=== PATIENT | female | born 1935 | race Caucasian/White ===

== ENCOUNTER → 2016-05-10 | Outpatient (CLI) | payer MEDICARE ==
[~2016-05-10] MED LIST: ASPI-COR81 M1 PO; ASPIRIN LITE C325 MG PO; B12100 MC1 PO; CALCIUM 500 +1 EAC1 PO; CALCIUM 600MG+D1 TAB PO; COREG12.5 MG PO; DIOVAN160 MG PO; FORTE-PLUS-241 CAP PO; GLIPIZIDE2.5 MG PO; ISOSORBIDE MONO60 MG PO; JANUVIA100 MG PO; LASIX20 MG PO; LIPITOR80 MG PO; Lovenox40 MG/0.4 SC; METFORMIN500 MG PO; MICRO-K EXTENCA8 MEQ PO; SYNTHROID0.175 MG PO
[2016-05-10 07:40] LABS: ALBUMIN 3.7 gm/dl (3.1-4.5); ALKALINE PHOSPHATASE 124 U/L (45-117); BILIRUBIN, TOTAL 0.6 mg/dl (0.2-1.0); BUN 37 mg/dl (7-24); CARBON DIOXIDE 27 mmol/L (21-32); CHLORIDE 106 mmol/L (98-107); CHOLESTEROL 120 mg/dL (<200); EST GLOM FILT AFRICAN AMERICAN > 60 ml/min; GLUCOSE 124 mg/dL (65-99); HDL CHOLESTEROL 46 mg/dl (40-60); LDL CHOLESTEROL 55 mg/dL (9-159); POTASSIUM 3.9 mmol/L (3.5-5.1); SGOT/AST 25 IU/L (3-35); SGPT/ALT 35 U/L (12-78); SODIUM 144 mmol/L (136-145); TOTAL PROTEIN 7.7 gm/dL (6.4-8.2); TRIGLYCERIDES 96 mg/dl (<150); VLDL CHOLESTEROL 19 mg/dL (6-40)
[2016-05-10 07:42] LABS: HEMOGLOBIN 13.3 g/dl (12.0-16.0); MEAN CORPUSCULAR HGB 32.1 pg (27.0-31.0); MEAN CORPUSCULAR HGB CONC 32.4 g/dl (33.0-37.0); MEAN PLATELET VOLUME 10.4 fl (9.6-12.3); RED BLOOD COUNT 4.14 10*6/uL (4.10-5.10); RED CELL DISTRI WIDTH 12.8 % (0-14.5)
[2016-05-10 07:46] LABS: THYROID STIM HORMONE (HS) 0.131 uIU/ml (0.358-4.75)
== END | disposition home or self-care (01) ==
LOC: LAB 02:55
PROVIDERS: Nurse Practitioner Adult Health
DX: E11.9 Type 2 diabetes mellitus without complications (principal); I10 Essential (primary) hypertension; I25.810 Atherosclerosis of coronary artery bypass graft(s) without angina pectoris; E05.90 Thyrotoxicosis, unspecified without thyrotoxic crisis or storm; E87.5 Hyperkalemia; E55.9 Vitamin D deficiency, unspecified

== ENCOUNTER → 2016-06-09 | Outpatient (CLI) | payer MEDICARE ==
[2016-06-09 07:54] LABS: ALBUMIN 3.6 gm/dl (3.1-4.5); BILIRUBIN, DIRECT 0.1 mg/dL (0.0-0.2); BILIRUBIN, TOTAL 0.4 mg/dl (0.2-1.0); TOTAL PROTEIN 7.7 gm/dL (6.4-8.2)
== END | disposition home or self-care (01) ==
LOC: LAB 01:15
PROVIDERS: Nurse Practitioner Adult Health
DX: I47.2 Ventricular tachycardia (principal)

== ENCOUNTER → 2016-08-01 | Outpatient (CLI) | payer MEDICARE ==
[2016-08-01 07:27] LABS: HEMATOCRIT 35.7 % (37.0-47.0); HEMOGLOBIN 11.6 g/dl (12.0-16.0); MEAN CELL VOLUME 102.3 fl (81.0-99.0); MEAN CORPUSCULAR HGB 33.2 pg (27.0-31.0); MEAN CORPUSCULAR HGB CONC 32.5 g/dl (33.0-37.0); MEAN PLATELET VOLUME 10.4 fl (9.6-12.3); RED BLOOD COUNT 3.49 10*6/uL (4.10-5.10); RED CELL DISTRI WIDTH 14.2 % (0-14.5); WHITE BLOOD COUNT 24.9 10*3/uL (4.8-10.8)
[2016-08-01 07:52] LABS: ALBUMIN 3.3 gm/dl (3.1-4.5); BILIRUBIN, TOTAL 1.1 mg/dl (0.2-1.0); POTASSIUM 4.8 mmol/L (3.5-5.1); TOTAL PROTEIN 7.4 gm/dL (6.4-8.2)
[2016-08-01 07:59] LABS: THYROID STIM HORMONE (HS) 1.14 uIU/ml (0.358-4.75)
[2016-08-01 08:12] LABS: VITAMIN D, 25-HYDROXY 36.7 ng/mL (30-100)
== END | disposition home or self-care (01) ==
LOC: LAB 01:52
PROVIDERS: Internal Medicine
DX: E78.2 Mixed hyperlipidemia (principal); E11.9 Type 2 diabetes mellitus without complications; E05.90 Thyrotoxicosis, unspecified without thyrotoxic crisis or storm; E55.9 Vitamin D deficiency, unspecified; I25.720 Atherosclerosis of autologous artery coronary artery bypass graft(s) with unstable angina pectoris

== ENCOUNTER → 2016-08-02 | Outpatient (CLI) | payer MEDICARE ==
[2016-08-02 14:26] LABS: BASO % 0.2 % (0.0-1.0); EOS # 0.1 10*3/uL (0.0-0.4); EOS % 0.4 % (1.0-4.0); HEMATOCRIT 36.5 % (37.0-47.0); HEMOGLOBIN 11.7 g/dl (12.0-16.0); IG # 0.1 10*3/uL (0.0-0.1); LYMPH # 2.3 10*3/uL (1.3-4.4); LYMPH % 16.5 % (27.0-41.0); MEAN CELL VOLUME 102.5 fl (81.0-99.0); MEAN CORPUSCULAR HGB 32.9 pg (27.0-31.0); MEAN CORPUSCULAR HGB CONC 32.1 g/dl (33.0-37.0); MEAN PLATELET VOLUME 10.6 fl (9.6-12.3); MONO # 1.4 10*3/uL (0.1-1.0); MONO % 10.3 % (3.0-9.0); NEUT # 9.9 10*3/uL (2.3-7.9); NEUT % 71.9 % (47.0-73.0); PLATELET COUNT AUTOMATED 181 10*3/uL (130-400); RED BLOOD COUNT 3.56 10*6/uL (4.10-5.10); RED CELL DISTRI WIDTH 14.2 % (0-14.5); WHITE BLOOD COUNT 13.8 10*3/uL (4.8-10.8)
== END | disposition home or self-care (01) ==
LOC: LAB 13:54 → US 14:30
PROVIDERS: Internal Medicine
DX: N20.0 Calculus of kidney (principal); R79.89 Other specified abnormal findings of blood chemistry; D72.828 Other elevated white blood cell count; Z90.49 Acquired absence of other specified parts of digestive tract; E05.90 Thyrotoxicosis, unspecified without thyrotoxic crisis or storm; E11.9 Type 2 diabetes mellitus without complications; E78.2 Mixed hyperlipidemia; I25.720 Atherosclerosis of autologous artery coronary artery bypass graft(s) with unstable angina pectoris; E55.9 Vitamin D deficiency, unspecified

== ENCOUNTER → 2016-08-11 | Outpatient (CLI) | payer MEDICARE | END | disposition home or self-care (01) | LOC: US 08-09 16:00 | DX: N13.30 Unspecified hydronephrosis (principal); D72.828 Other elevated white blood cell count; N32.89 Other specified disorders of bladder ==

== ENCOUNTER 2016-11-30 08:11 | Emergency (ER) | payer MEDICARE ==
[~2016-11-30] VITALS: Wt 61.2 kg
[2016-11-30 08:54] LABS: BILIRUBIN NEGATIVE (NEGATIVE); BLOOD NEGATIVE (NEGATIVE); CLARITY CLEAR (CLEAR); COLOR YELLOW (YELLOW); GLUCOSE NEGATIVE (NEGATIVE); KETONE NEGATIVE (NEGATIVE); LEUKO ESTERASE NEGATIVE (NEGATIVE); NITRITE NEGATIVE (NEGATIVE); PH 5.5 (5.0-9.0); SPECIFIC GRAVITY <= 1.005 (1.005-1.030); UROBILINOGEN 0.2 E.U./dl (0.2-1.0)
[2016-11-30 09:17] LABS: BACTERIA TRACE; CALCIUM OXALATE CRYSTALS 1+
[2016-11-30 09:39] LABS: BASO # 0.1 10*3/uL (0.0-0.1); BASO % 0.5 % (0.0-1.0); EOS # 0.2 10*3/uL (0.0-0.4); EOS % 1.9 % (1.0-4.0); HEMATOCRIT 37.8 % (37.0-47.0); HEMOGLOBIN 12.4 g/dl (12.0-16.0); LYMPH # 2.3 10*3/uL (1.3-4.4); LYMPH % 22.1 % (27.0-41.0); MEAN CELL VOLUME 101.3 fl (81.0-99.0); MEAN CORPUSCULAR HGB 33.2 pg (27.0-31.0); MEAN CORPUSCULAR HGB CONC 32.8 g/dl (33.0-37.0); MEAN PLATELET VOLUME 10.2 fl (9.6-12.3); MONO # 1.2 10*3/uL (0.1-1.0); MONO % 11.3 % (3.0-9.0); NEUT # 6.7 10*3/uL (2.3-7.9); NEUT % 63.7 % (47.0-73.0); PLATELET COUNT AUTOMATED 177 10*3/uL (130-400); RED BLOOD COUNT 3.73 10*6/uL (4.10-5.10); RED CELL DISTRI WIDTH 12.6 % (0-14.5); WHITE BLOOD COUNT 10.5 10*3/uL (4.8-10.8)
[2016-11-30 09:51] LABS: BUN 26 mg/dl (7-24); CHLORIDE 105 mmol/L (98-107); CREATININE 1.01 mg/dL (0.55-1.02); POTASSIUM 5.2 mmol/L (3.5-5.1); SODIUM 140 mmol/L (136-145)
[2016-11-30] MEDS ORDERED: Fioricet 325 MG1 TAB PO ×2 (10:57→11:03)
== END 2016-11-30 11:11 | disposition home or self-care (01) ==
LOC: ED 08:11
PROVIDERS: Emergency Medicine
DX: S22.080A Wedge compression fracture of T11-T12 vertebra, initial encounter for closed fracture (principal); M48.52XA Collapsed vertebra, not elsewhere classified, cervical region, initial encounter for fracture; Z79.899 Other long term (current) drug therapy; Z79.82 Long term (current) use of aspirin; X58.XXXA Exposure to other specified factors, initial encounter; Y93.9 Activity, unspecified; Y92.9 Unspecified place or not applicable; Y99.9 Unspecified external cause status

== ENCOUNTER → 2016-12-07 | Outpatient (CLI) | payer MEDICARE ==
[~2016-12-07] MED LIST changes: +Fioricet 325 MG1 TAB PO
== END | disposition home or self-care (01) ==
LOC: CT 07:15 → MRI 12-08 08:00 → CT 12-11 08:00 → MRI 12-11 08:00 → CT 12-11 09:00
DX: M51.36 Other intervertebral disc degeneration, lumbar region (principal); M43.17 Spondylolisthesis, lumbosacral region; M12.88 Other specific arthropathies, not elsewhere classified, other specified site

== ENCOUNTER → 2016-12-20 | Outpatient (CLI) | payer MEDICARE | END | disposition home or self-care (01) | LOC: LAB 09:53 | DX: I50.22 Chronic systolic (congestive) heart failure (principal); E11.9 Type 2 diabetes mellitus without complications ==

== ENCOUNTER 2020-02-12 23:34 | Inpatient (IN) | payer MEDICARE ==
[~2020-02-12] VITALS: Ht 162.5 cm; Wt 51.8 kg
[~2020-02-12 23:34] MED LIST changes: +ASPIRIN CHEWABL81 MG PO; -ASPIRIN LITE C325 MG PO; +GLIPIZIDE5 MG PO; +HYDROXYZINE PAM25 M1 PO; +IRON325 M1 PO; +LEVAQUIN750 M1 PO; +MAGNESIUM400 M1 PO; +METOPROLOL SUC200 M1 PO; +MEXILETINE HCL200 MG PO; +MULTIVITAMINS1 EAC5 PO; +PRESERVISION L1 EACH PO; +SYNTHROID,LEV125 MCG PO; -SYNTHROID0.175 MG PO; +VITAMIN B COMP1 EAC1 PO
[2020-02-12 23:35] VITALS: BP 138/64
[2020-02-12 23:53] LABS: BASO # 0.1 10*3/uL (0.0-0.1); BASO % 0.5 % (0.0-1.0); EOS # 0.1 10*3/uL (0.0-0.4); EOS % 0.6 % (1.0-4.0); LYMPH # 1.2 10*3/uL (1.3-4.4); MEAN CELL VOLUME 103.5 fl (81.0-99.0); MEAN CORPUSCULAR HGB 32.2 pg (27.0-31.0); MEAN CORPUSCULAR HGB CONC 31.1 g/dl (33.0-37.0); MEAN PLATELET VOLUME 9.8 fl (9.6-12.3); MONO # 1.1 10*3/uL (0.1-1.0); MONO % 8.3 % (3.0-9.0); NEUT # 10.8 10*3/uL (2.3-7.9); NEUT % 80.9 % (47.0-73.0); PLATELET COUNT AUTOMATED 177 10*3/uL (130-400); RED BLOOD COUNT 3.67 10*6/uL (4.10-5.10); RED CELL DISTRI WIDTH 13.3 % (0-14.5); WHITE BLOOD COUNT 13.3 10*3/uL (4.8-10.8)
[2020-02-13] VITALS (7 sets, daily range): BP systolic 93–125; BP diastolic 52–69
[2020-02-13 00:09] LABS: CREATININE 1.19 mg/dL (0.55-1.02); POTASSIUM 4.4 mmol/L (3.5-5.1); TOTAL PROTEIN 6.7 gm/dL (6.4-8.2)
--- NOTE | 2020-02-13 00:14 | NUR ---
PT BACK FROM CT. DENIES NEEDS AT THIS TIME.
--- NOTE | 2020-02-13 01:23 | NUR ---
WOUND ASSESSMENT COMPLETED. NO WOUNDS NOTED. MULTIPLE ECCHYMOTIC AREAS NOTED ON ARMS. PT ALSO DENIES ANY WOUNDS.
--- NOTE | 2020-02-13 01:30 | NUR ---
Time: 129 A 84 year old FEMALE admitted to 5E under services of ANG PERDOMO DO. Pt. arrived via CART from ER. Chief complaint: FALL WITH FRACTURE. JAGUAR STONE
[2020-02-13] MEDS ORDERED: FUROSEMIDE40 MG PO (01:44)
[2020-02-13] MEDS ORDERED: VITAMIN D325 MCG PO (01:45)
[2020-02-13] MEDS ORDERED: DOK100 M1 PO (01:46)
--- NOTE | 2020-02-13 01:48 | NUR ---
MED REC UPDATED VIA LIST FROM HOME. NOTIFIED.
--- NOTE | 2020-02-13 04:46 | NUR ---
CALLED IN, UPDATED ON STATUS.
--- NOTE | 2020-02-13 05:52 | NUR ---
MORPHINE GIVEN FOR COMPLAINTS OF PAIN TO LEFT SHOULDER. SHOULDER NOTED TO BE MORE SWOLLEN WITH LARGE BRUISE. PAIN RATED 7/10. WILL MONITOR. CALL LIGHT IN REACH. ICE PACK ALSO APPLIED AT THIS TIME.
--- NOTE | 2020-02-13 06:50 | NUR ---
PER PT, MORPHINE AND ICE PACK EFFECTIVE FOR PAIN. CALL LIGHT IN REACH. BED ALARM ON.
[2020-02-13 07:09] LABS: HEMATOCRIT 35.2 % (37.0-47.0); MEAN CELL VOLUME 103.8 fl (81.0-99.0); MEAN CORPUSCULAR HGB 32.2 pg (27.0-31.0); MEAN PLATELET VOLUME 9.8 fl (9.6-12.3); PLATELET COUNT AUTOMATED 172 10*3/uL (130-400); RED BLOOD COUNT 3.39 10*6/uL (4.10-5.10); RED CELL DISTRI WIDTH 13.6 % (0-14.5); WHITE BLOOD COUNT 12.7 10*3/uL (4.8-10.8)
[2020-02-13 07:31] LABS: ACT PARTIAL THROMBO TIME 24.1 SECONDS (20.0-32.1)
[2020-02-13 07:33] LABS: ALBUMIN 2.9 gm/dl (3.1-4.5); CREATININE 1.2 mg/dL (0.55-1.02); THYROID STIM HORMONE (HS) 1.54 uIU/ml (0.358-4.75); TOTAL PROTEIN 6.5 gm/dL (6.4-8.2)
--- NOTE | 2020-02-13 07:35 | NUR ---
CONSULT CALLED TO . MESSAGE LEFT. AWAITING CALL BACK.
--- NOTE | 2020-02-13 07:43 | NUR ---
DR. PAUL NOTIFIED OF CONSULT, WILL SEE THE PATIENT TOMORROW.
--- NOTE | 2020-02-13 08:09 | NUR ---
MEDICATED WITH PRN PO NORCO FOR LEFT SHOULDER/ARM PAIN.
--- NOTE | 2020-02-13 08:23 | NUR ---
HELD AM [facility] FOR BP 102/52.
[2020-02-13 08:31] LABS: VITAMIN D, 25-HYDROXY 58.7 ng/mL (30-100)
[2020-02-13 08:56] LABS: PLATELET SUFFICIENCY NORMAL (NORMAL); TOTAL CELLS COUNTED 100 #CELLS
--- NOTE | 2020-02-13 12:19 | NUR ---
ATTEMPTED INSENTIVE SPIROMETRY. PT DOES NOT UNDERSTAND HOW TO USE IT. RT TRIED TO EXPLAIN AND PT DOES NOT GET CONCEPT OF THE PROCEDURE. WILL ATTEMPT AGAIN.
--- NOTE | 2020-02-13 13:42 | NUR ---
MEDICATED WITH PRN PO NORCO FOR LEFT SHOULDER/ARM PAIN.
--- NOTE | 2020-02-13 14:26 | NUR ---
PRN PO NORCO EFFECTIVE, PER PATIENT.
--- NOTE | 2020-02-13 18:01 | NUR ---
MEDICATED WITH PRN PO NORCO FOR CONTROL OF LEFT SHOULDER/ARM PAIN.
--- NOTE | 2020-02-13 18:11 | NUR ---
PATIENT WAS ORDERED PACEMAKER INTERROGATION; PATIENT HAS [employer]ATOR WITH A [employer]ANT[employer] LEAD IMPLANTED. [employer] PHONED TO INQUIRE ABOUT AN INTERROGATION. PER [employer] REP, UNLESS PATIENT IS BELIEVED TO HAVE A SPECIFIC PROBLEM WITH THE DEVICE OR AN EMERGENCY, HAVING REPS COME TO INPATIENT FLOORS DURING COVID PANDEMIC IS DISCOURAGED, AND THE COMPANY REQUIRES THE INTERROGATION ORDER TO BE PLACED BY A DIRECTOR SOFTWARE. PHONED DR. LORENZO WITH THIS INFORMATION, WHO SPOKE WITH DR. QUICK ALSO. OBTAINED ORDER TO CANCEL THE INTERROGATION AT THIS TIME. [employer] REP NOTIFIED OF THE CANCELLATION.
--- NOTE | 2020-02-13 23:22 | NUR ---
PT HAS S/S OF PAIN TO LEFT SHOULDER. NORCO GIVEN. WILL MONITOR FOR EFFECTIVENESS. CALL LIGHT IN REACH.
--- NOTE | 2020-02-13 23:22 | NUR ---
NORCO APPEARS EFFECTIVE. PT RESTING IN BED AT THIS TIME.
[2020-02-14] VITALS: BP 103/58
--- NOTE | 2020-02-14 06:45 | NUR ---
PT SLEEPING. RESPIRATIONS UNLABORED. NO S/S OF DISTRESS NOTED. SAFETY MEASURES IN PLACE. CALL LIGHT IN REACH.
[2020-02-14 08:00] VITALS: BP 124/75
--- NOTE | 2020-02-14 11:13 | NUR ---
[employer] Irrigator in to talk to patient. Patient Lives at home with her There are No Steps Physician: Dr. Sesay Pharmacy: [facility] Home health services: [facility] Patient's level of ADLs: Needs Assist Patient has working utilities: yes all are working DME: walker Follow-up physician's appointment after d/c: Per Hospitalist Nurse Director Does patient want to access PORTAL?: No Discharge plan discussed with Pt. due to Pt. being Confused. Pt. will return home per . Receptive to Home Health. Receives Services with [facility]. Pt. States that their Son David Tierney is in Charge of Everything Else. Refused SNF due to Covid Risk. HENRI JOHNSON LPN
[2020-02-14 12:00] VITALS: BP 108/66
--- NOTE | 2020-02-14 15:14 | NUR ---
NORCO GIVEN FOR C/O LT ARM PAIN. UNABLE TO RATE AT PRESNT. WILL MONITOR.
[2020-02-14 16:00] VITALS: BP 100/54
--- NOTE | 2020-02-14 16:15 | NUR ---
NORCO APPEARS EFFECTIVE. PT RESTING IN BED. NO C/O VOICED.
--- NOTE | 2020-02-14 17:00 | NUR ---
PHYSICAL THERAPY PT EVAL COMPLETED TODAY ON LEVEL 5; FULLE EVALUATION TO FOLLOW. RECOMMEND PT WHILE HERE TO ADDRESS DECREASED STRENGTH, ROM , BALANCE AND THUS DECREASED FUNCTIONAL STATUS. PT EVAL IS MODERATE COMPLEXITY: 85508 D/C RECOMMENDATIONS ON EVAL ARE FOR SHORT TERM SNF HOWEVER PER CHART REVIEW FAMILY STATES D/C PLAN IS HOME WITH HOME HEALTH AND CAREGIVERS DUE TO FEAR OF COVID 19. THANK YOU FOR EVALUATION FRED GALLEGOS PT
[2020-02-14 20:00] VITALS: BP 100/55
[2020-02-14 23:54] VITALS: BP 121/64
[2020-02-15 07:10] LABS: HEMATOCRIT 33.1 % (37.0-47.0); MEAN CELL VOLUME 103.4 fl (81.0-99.0); MEAN CORPUSCULAR HGB 31.9 pg (27.0-31.0); MEAN CORPUSCULAR HGB CONC 30.8 g/dl (33.0-37.0); MEAN PLATELET VOLUME 9.9 fl (9.6-12.3); PLATELET COUNT AUTOMATED 186 10*3/uL (130-400); RED CELL DISTRI WIDTH 13.8 % (0-14.5); WHITE BLOOD COUNT 13.9 10*3/uL (4.8-10.8)
[2020-02-15 07:36] LABS: ALBUMIN 2.8 gm/dl (3.1-4.5); CREATININE 1.94 mg/dL (0.55-1.02); POTASSIUM 5.7 mmol/L (3.5-5.1); TOTAL PROTEIN 6.6 gm/dL (6.4-8.2)
[2020-02-15 08:00] VITALS: BP 139/69
--- NOTE | 2020-02-15 08:51 | NUR ---
MEDICATED WITH PRN NORCO PER ORDER.
[2020-02-15 08:53] LABS: ALBUMIN 2.8 gm/dl (3.1-4.5); CREATININE 1.93 mg/dL (0.55-1.02); POTASSIUM 5.7 mmol/L (3.5-5.1)
[2020-02-15 09:11] LABS: PLATELET SUFFICIENCY NORMAL (NORMAL); TOTAL CELLS COUNTED 100 #CELLS
--- NOTE | 2020-02-15 09:30 | NUR ---
GIGI HELPED PATIENT SLEEPING.
[2020-02-15 12:00] VITALS: BP 107/61
--- NOTE | 2020-02-15 14:05 | NUR ---
PHYSICAL THERAPY PATIENT SEEN TODAY FOR ONE ON ONE TREATMENT IN ROOM: UP IN RECLINER WHEN THIS PT ARRIVED AND WAS ABLE TO COMPLETE BLE THER EX FOR 2 SETS OF 15 REPS AND DO 2 STANDS AT CHAIR WITH MOD/MAX OF 1 FOR SIT TO STAND AND WAS ABLE TO STAND FOR 30 -45 SECOND BOUTS WITH 25 % CUES FOR MORE UPRIGHT POSTURE. DR PALU WAS IN TODAY PER NURSE AND ACTUALLY ASSISTED PATIENT INTO THE W/C TODAY. D/C RECOMMENDATIONS AT THIS TIME WOULD BE FOR SHORT TERM SNF BUT FAMILY IS REQUESTING HOME WITH HOME HEALTH. WAS ABLE TO GAIT 10 FT X 2 TODAY WITH MOD WEB ARCHITECT OF 1 WITH 50% CUES FOR POSTURE AND WITH THE LUE IN SLING. UPON COMPLETION OF EVAL RETURNED TO RECLINER WITH CALL LIGHT AND LE'S ELEVLATED WITH NURSE AWARE SHE IS UP IN THE CHAIR. THANK YOU FRED GALLEGOS PT
[2020-02-15 16:00] VITALS: BP 114/68
--- NOTE | 2020-02-15 17:40 | NUR ---
MEDICATED WITH PRN NORCO PER ORDER NAD REQUEST.
[2020-02-15 20:00] VITALS: BP 108/51
[2020-02-16] VITALS: BP 149/72
--- NOTE | 2020-02-16 04:09 | NUR ---
24 HR chart check completed.
--- NOTE | 2020-02-16 06:00 | NUR ---
PATIENT SLEPT THROUGHOUT SHIFT. NO ACUTE DISTRESS NOTED.
[2020-02-16 06:38] LABS: CREATININE 1.57 mg/dL (0.55-1.02); POTASSIUM 5.2 mmol/L (3.5-5.1)
[2020-02-16 08:00] VITALS: BP 114/76
--- NOTE | 2020-02-16 09:21 | NUR ---
Occupational Therapy evaluation completed on five with full evaluation to follow. Recommend occupational therapy per plan of care and SNF upon discharge. Thank you for this referral. Desirae Martínez OTR/L
[2020-02-16] MEDS ORDERED: METOPROLOL SUC100 M1 PO (10:28)
[2020-02-16] MEDS ORDERED: Humalog SQ (10:28)
[2020-02-16] MEDS ORDERED: NORCO 5-325 TA1 EACH PO (10:28)
[2020-02-16 12:00] VITALS: BP 122/70
--- NOTE | 2020-02-16 15:16 | NUR ---
Referral and Discharge Paperwork Faxed to [facility] Attn: Kenyatta [phone].
--- NOTE | 2020-02-16 16:40 | NUR ---
Discharge instructions reviewed with patient/family. Patient receptive and verbalizes understanding. Follow-up care arranged. Written instructions given to patient/family. PHOEBE CORTES
== END 2020-02-16 16:40 | disposition home or self-care (01) | DRG 562 ==
LOC: ED 23:34 → 5E 02-13 00:31 → EDHOLD 02-13 00:31 → 5E 02-13 00:44
PROVIDERS: Hospitalist; Internal Medicine; Student in an Organized Health Care Education/Training Program; ADMIT Internal Medicine; ATTEND Internal Medicine
DX: S42.222A 2-part displaced fracture of surgical neck of left humerus, initial encounter for closed fracture (principal); N17.0 Acute kidney failure with tubular necrosis; E44.0 Moderate protein-calorie malnutrition; I50.42 Chronic combined systolic (congestive) and diastolic (congestive) heart failure; Z68.1 Body mass index [BMI] 19.9 or less, adult; W19.XXXA Unspecified fall, initial encounter; E88.09 Other disorders of plasma-protein metabolism, not elsewhere classified; E11.65 Type 2 diabetes mellitus with hyperglycemia; I25.10 Atherosclerotic heart disease of native coronary artery without angina pectoris; I35.0 Nonrheumatic aortic (valve) stenosis; I45.10 Unspecified right bundle-branch block; D53.9 Nutritional anemia, unspecified; E03.9 Hypothyroidism, unspecified; Z20.828 Contact with and (suspected) exposure to other viral communicable diseases; I11.0 Hypertensive heart disease with heart failure; E78.5 Hyperlipidemia, unspecified; W18.30XA Fall on same level, unspecified, initial encounter; I44.0 Atrioventricular block, first degree; Y93.89 Activity, other specified; Y99.8 Other external cause status; Y92.89 Other specified places as the place of occurrence of the external cause; Z95.810 Presence of automatic (implantable) cardiac defibrillator; Z90.49 Acquired absence of other specified parts of digestive tract; Z95.1 Presence of aortocoronary bypass graft; Z82.49 Family history of ischemic heart disease and other diseases of the circulatory system; Z79.82 Long term (current) use of aspirin; Z79.899 Other long term (current) drug therapy

== ENCOUNTER 2020-02-18 12:46 | Inpatient (IN) | payer MEDICARE ==
[~2020-02-18] VITALS: Ht 162.5 cm; Wt 51.7 kg
[2020-02-18 08:30] VITALS: BP 128/69
[~2020-02-18 12:46] MED LIST changes: +DOK100 M1 PO; +FUROSEMIDE40 MG PO; +Humalog SQ; +METOPROLOL SUC100 M1 PO; +NORCO 5-325 TA1 EACH PO; +VITAMIN D325 MCG PO
[2020-02-18 12:47] VITALS: BP 132/70
[2020-02-18 14:26] LABS: HEMATOCRIT 33.4 % (37.0-47.0); MEAN CELL VOLUME 103.7 fl (81.0-99.0); MEAN CORPUSCULAR HGB CONC 30.8 g/dl (33.0-37.0); MEAN PLATELET VOLUME 9.9 fl (9.6-12.3); PLATELET COUNT AUTOMATED 244 10*3/uL (130-400); RED BLOOD COUNT 3.22 10*6/uL (4.10-5.10); RED CELL DISTRI WIDTH 13.7 % (0-14.5); WHITE BLOOD COUNT 12.3 10*3/uL (4.8-10.8)
[2020-02-18 14:41] LABS: ACT PARTIAL THROMBO TIME 26.4 SECONDS (20.0-32.1)
[2020-02-18 14:46] LABS: ALBUMIN 2.3 gm/dl (3.1-4.5); CREATININE 1.13 mg/dL (0.55-1.02); POTASSIUM 4.4 mmol/L (3.5-5.1); TOTAL PROTEIN 6.4 gm/dL (6.4-8.2); TROPONIN I 0.031 ng/ml (<0.045)
[2020-02-18 14:48] LABS: PLATELET SUFFICIENCY NORMAL (NORMAL); TOTAL CELLS COUNTED 100 #CELLS
[2020-02-18 14:49] LABS: BURR CELLS FEW
[2020-02-18 15:23] LABS: BILIRUBIN Negative (Negative); BLOOD Negative (Negative); CLARITY Clear (Clear); COLOR Dark Yellow (Yellow); GLUCOSE Negative (Negative); KETONE Trace (Negative); LEUKO ESTERASE Negative (Negative); NITRITE Negative (Negative); PH 5.5 (4.5-8.0); SPECIFIC GRAVITY >= 1.030 (1.001-1.030)
[2020-02-18 15:47] LABS: WBC 0-2 wbc/hpf (0-5)
[2020-02-18 20:08] VITALS: BP 114/57
[2020-02-18 23:10] VITALS: BP 117/76
[2020-02-19 02:27] VITALS: BP 117/68
[2020-02-19 05:59] VITALS: BP 128/69
[2020-02-19 05:59] LABS: ALBUMIN 2.5 gm/dl (3.1-4.5); CREATININE 1.09 mg/dL (0.55-1.02); POTASSIUM 3.9 mmol/L (3.5-5.1); TOTAL PROTEIN 6.7 gm/dL (6.4-8.2)
[2020-02-19 06:12] LABS: BASO % 0.3 % (0.0-1.0); EOS # 0.2 10*3/uL (0.0-0.4); EOS % 1.3 % (1.0-4.0); HEMATOCRIT 36.3 % (37.0-47.0); LYMPH % 17.1 % (27.0-41.0); MEAN CELL VOLUME 104.3 fl (81.0-99.0); MEAN CORPUSCULAR HGB 32.2 pg (27.0-31.0); MEAN CORPUSCULAR HGB CONC 30.9 g/dl (33.0-37.0); MEAN PLATELET VOLUME 9.9 fl (9.6-12.3); MONO # 1.4 10*3/uL (0.1-1.0); MONO % 12.2 % (3.0-9.0); NEUT % 68.4 % (47.0-73.0); PLATELET COUNT AUTOMATED 270 10*3/uL (130-400); RED BLOOD COUNT 3.48 10*6/uL (4.10-5.10); RED CELL DISTRI WIDTH 13.6 % (0-14.5); WHITE BLOOD COUNT 11.7 10*3/uL (4.8-10.8)
[2020-02-19] MEDS ORDERED: MEXILETINE HCL200 MG PO (08:55)
[2020-02-19] MEDS ORDERED: FUROSEMIDE40 MG PO (08:58)
[2020-02-19] MEDS ORDERED: GLIPIZIDE5 MG PO (08:58)
[2020-02-19 11:25] VITALS: BP 119/68
[2020-02-19 12:00] VITALS: BP 124/56
[2020-02-19 16:00] VITALS: BP 133/57
[2020-02-19 20:00] VITALS: BP 81/52; BP 90/50
[2020-02-20] VITALS: BP 126/73
[2020-02-20 07:09] LABS: HEMATOCRIT 34.3 % (37.0-47.0); MEAN CORPUSCULAR HGB 31.8 pg (27.0-31.0); MEAN CORPUSCULAR HGB CONC 30.9 g/dl (33.0-37.0); MEAN PLATELET VOLUME 9.6 fl (9.6-12.3); PLATELET COUNT AUTOMATED 250 10*3/uL (130-400); RED BLOOD COUNT 3.33 10*6/uL (4.10-5.10); RED CELL DISTRI WIDTH 13.6 % (0-14.5); WHITE BLOOD COUNT 14.8 10*3/uL (4.8-10.8)
[2020-02-20 07:40] LABS: TOTAL CELLS COUNTED 100 #CELLS
[2020-02-20 07:42] LABS: PLATELET SUFFICIENCY NORMAL (NORMAL)
[2020-02-20 08:01] LABS: CREATININE 1.07 mg/dL (0.55-1.02)
[2020-02-20 08:48] VITALS: BP 119/69
[2020-02-20 12:00] VITALS: BP 117/58
[2020-02-20 16:00] VITALS: BP 105/59
[2020-02-20 20:00] VITALS: BP 100/59
[2020-02-21] VITALS: BP 103/52
[2020-02-21 06:52] LABS: HEMATOCRIT 31.1 % (37.0-47.0); MEAN CELL VOLUME 102.6 fl (81.0-99.0); MEAN CORPUSCULAR HGB CONC 31.2 g/dl (33.0-37.0); MEAN PLATELET VOLUME 9.9 fl (9.6-12.3); PLATELET COUNT AUTOMATED 233 10*3/uL (130-400); RED BLOOD COUNT 3.03 10*6/uL (4.10-5.10); RED CELL DISTRI WIDTH 13.7 % (0-14.5); WHITE BLOOD COUNT 15.2 10*3/uL (4.8-10.8)
[2020-02-21 07:22] LABS: BUN 42 mg/dl (7-24); CHLORIDE 111 mmol/L (98-107); CREATININE 0.94 mg/dL (0.55-1.02); SODIUM 145 mmol/L (136-145)
[2020-02-21 07:58] LABS: PLATELET SUFFICIENCY NORMAL (NORMAL); POLYCHROMASIA SLIGHT; TOTAL CELLS COUNTED 100 #CELLS
[2020-02-21 07:59] LABS: BURR CELLS FEW; OVALOCYTES FEW
[2020-02-21 08:00] VITALS: BP 120/62; BP 130/65
[2020-02-21 12:00] VITALS: BP 130/57
[2020-02-21 12:31] VITALS: BP 132/70
[2020-02-21 16:00] VITALS: BP 122/60
[2020-02-21 20:00] VITALS: BP 126/65
[2020-02-22] VITALS: BP 109/62
[2020-02-22 06:37] LABS: BASO # 0.1 10*3/uL (0.0-0.1); BASO % 0.5 % (0.0-1.0); EOS # 0.4 10*3/uL (0.0-0.4); EOS % 2.9 % (1.0-4.0); LYMPH # 2.1 10*3/uL (1.3-4.4); LYMPH % 16.3 % (27.0-41.0); MEAN CELL VOLUME 104.6 fl (81.0-99.0); MEAN CORPUSCULAR HGB 32.4 pg (27.0-31.0); MEAN CORPUSCULAR HGB CONC 30.9 g/dl (33.0-37.0); MEAN PLATELET VOLUME 9.6 fl (9.6-12.3); MONO # 1.5 10*3/uL (0.1-1.0); MONO % 11.8 % (3.0-9.0); NEUT # 8.5 10*3/uL (2.3-7.9); NEUT % 67.2 % (47.0-73.0); PLATELET COUNT AUTOMATED 237 10*3/uL (130-400); RED BLOOD COUNT 3.06 10*6/uL (4.10-5.10); RED CELL DISTRI WIDTH 13.7 % (0-14.5); WHITE BLOOD COUNT 12.6 10*3/uL (4.8-10.8)
[2020-02-22 06:55] LABS: ALBUMIN 2.1 gm/dl (3.1-4.5); ALKALINE PHOSPHATASE 159 U/L (45-117); BUN 45 mg/dl (7-24); CHLORIDE 113 mmol/L (98-107); CREATININE 0.91 mg/dL (0.55-1.02); POTASSIUM 4.1 mmol/L (3.5-5.1); SGOT/AST 62 IU/L (3-35); SGPT/ALT 59 U/L (12-78); SODIUM 142 mmol/L (136-145)
[2020-02-22 08:00] VITALS: BP 102/50; BP 109/62
[2020-02-22 12:00] VITALS: BP 90/65
[2020-02-22 16:00] VITALS: BP 105/63
[2020-02-22 20:00] VITALS: BP 98/62
[2020-02-23] VITALS: BP 109/71
[2020-02-23 06:31] LABS: BASO # 0.1 10*3/uL (0.0-0.1); BASO % 0.5 % (0.0-1.0); EOS # 0.3 10*3/uL (0.0-0.4); EOS % 2.5 % (1.0-4.0); HEMATOCRIT 31.5 % (37.0-47.0); LYMPH # 2.2 10*3/uL (1.3-4.4); LYMPH % 19.8 % (27.0-41.0); MEAN CELL VOLUME 102.6 fl (81.0-99.0); MEAN CORPUSCULAR HGB 32.2 pg (27.0-31.0); MEAN CORPUSCULAR HGB CONC 31.4 g/dl (33.0-37.0); MEAN PLATELET VOLUME 9.4 fl (9.6-12.3); MONO # 1.3 10*3/uL (0.1-1.0); MONO % 11.8 % (3.0-9.0); NEUT % 64.5 % (47.0-73.0); PLATELET COUNT AUTOMATED 243 10*3/uL (130-400); RED BLOOD COUNT 3.07 10*6/uL (4.10-5.10); RED CELL DISTRI WIDTH 13.9 % (0-14.5); WHITE BLOOD COUNT 10.9 10*3/uL (4.8-10.8)
[2020-02-23 06:46] LABS: BUN 42 mg/dl (7-24); CHLORIDE 111 mmol/L (98-107); CREATININE 0.91 mg/dL (0.55-1.02); POTASSIUM 4.2 mmol/L (3.5-5.1); SODIUM 144 mmol/L (136-145)
[2020-02-23 08:00] VITALS: BP 121/72
[2020-02-23 12:00] VITALS: BP 112/65
[2020-02-23 16:00] VITALS: BP 98/58
[2020-02-23 20:00] VITALS: BP 121/76
[2020-02-24] VITALS: BP 98/65
[2020-02-24 08:00] VITALS: BP 132/60
[2020-02-24 09:58] LABS: BASO # 0.1 10*3/uL (0.0-0.1); BASO % 0.5 % (0.0-1.0); EOS # 0.3 10*3/uL (0.0-0.4); EOS % 2.6 % (1.0-4.0); HEMATOCRIT 32.3 % (37.0-47.0); LYMPH # 2.2 10*3/uL (1.3-4.4); LYMPH % 20.2 % (27.0-41.0); MEAN CELL VOLUME 103.5 fl (81.0-99.0); MEAN CORPUSCULAR HGB 31.1 pg (27.0-31.0); MEAN PLATELET VOLUME 9.4 fl (9.6-12.3); MONO # 1.3 10*3/uL (0.1-1.0); MONO % 11.4 % (3.0-9.0); NEUT # 7.1 10*3/uL (2.3-7.9); NEUT % 64.3 % (47.0-73.0); PLATELET COUNT AUTOMATED 241 10*3/uL (130-400); RED BLOOD COUNT 3.12 10*6/uL (4.10-5.10); RED CELL DISTRI WIDTH 13.7 % (0-14.5)
[2020-02-24 12:00] VITALS: BP 90/56
[2020-02-24 16:22] VITALS: BP 115/54
[2020-02-24 20:00] VITALS: BP 100/64
[2020-02-25] VITALS (8 sets, daily range): BP systolic 93–123; BP diastolic 50–69
[2020-02-25 06:33] LABS: BASO # 0.1 10*3/uL (0.0-0.1); BASO % 0.8 % (0.0-1.0); EOS # 0.3 10*3/uL (0.0-0.4); EOS % 3.1 % (1.0-4.0); HEMATOCRIT 31.4 % (37.0-47.0); LYMPH # 2.1 10*3/uL (1.3-4.4); LYMPH % 20.9 % (27.0-41.0); MEAN CELL VOLUME 101.9 fl (81.0-99.0); MEAN CORPUSCULAR HGB 31.8 pg (27.0-31.0); MEAN CORPUSCULAR HGB CONC 31.2 g/dl (33.0-37.0); MEAN PLATELET VOLUME 9.6 fl (9.6-12.3); MONO # 1.3 10*3/uL (0.1-1.0); MONO % 13.5 % (3.0-9.0); NEUT % 60.8 % (47.0-73.0); PLATELET COUNT AUTOMATED 224 10*3/uL (130-400); RED BLOOD COUNT 3.08 10*6/uL (4.10-5.10); RED CELL DISTRI WIDTH 13.7 % (0-14.5); WHITE BLOOD COUNT 9.9 10*3/uL (4.8-10.8)
[2020-02-25 06:55] LABS: BUN 43 mg/dl (7-24); CHLORIDE 108 mmol/L (98-107); CREATININE 0.85 mg/dL (0.55-1.02); POTASSIUM 4.8 mmol/L (3.5-5.1); SODIUM 142 mmol/L (136-145)
[2020-02-26] VITALS: BP 107/69
[2020-02-26 06:21] LABS: BASO # 0.1 10*3/uL (0.0-0.1); BASO % 0.7 % (0.0-1.0); EOS # 0.1 10*3/uL (0.0-0.4); EOS % 1.4 % (1.0-4.0); HEMATOCRIT 30.7 % (37.0-47.0); LYMPH # 1.4 10*3/uL (1.3-4.4); LYMPH % 15.9 % (27.0-41.0); MEAN CELL VOLUME 101.3 fl (81.0-99.0); MEAN CORPUSCULAR HGB CONC 31.6 g/dl (33.0-37.0); MEAN PLATELET VOLUME 9.5 fl (9.6-12.3); MONO % 11.1 % (3.0-9.0); NEUT # 6.2 10*3/uL (2.3-7.9); NEUT % 70.1 % (47.0-73.0); PLATELET COUNT AUTOMATED 224 10*3/uL (130-400); RED BLOOD COUNT 3.03 10*6/uL (4.10-5.10); RED CELL DISTRI WIDTH 13.6 % (0-14.5); WHITE BLOOD COUNT 8.9 10*3/uL (4.8-10.8)
[2020-02-26 08:00] VITALS: BP 100/69
[2020-02-26 08:57] VITALS: BP 112/68
[2020-02-26 12:00] VITALS: BP 102/68
== END 2020-02-26 16:07 | disposition other institution (70) | DRG 562 ==
LOC: ED 12:46 → 5E 16:13 → EDHOLD 16:13 → 5E 02-19 10:52
PROVIDERS: Emergency Medicine; Hospitalist; Internal Medicine; Registered Nurse; Student in an Organized Health Care Education/Training Program; ADMIT Student in an Organized Health Care Education/Training Program; ATTEND Student in an Organized Health Care Education/Training Program
PROC: 0DB68ZX Excision of Stomach, Via Natural or Artificial Opening Endoscopic, Diagnostic (ICD-10-PCS; principal; 2020-02-25)
PROC: 0DJD8ZZ Inspection of Lower Intestinal Tract, Via Natural or Artificial Opening Endoscopic (ICD-10-PCS; 2020-02-25)
DX: S42.222A 2-part displaced fracture of surgical neck of left humerus, initial encounter for closed fracture (principal); E43 Unspecified severe protein-calorie malnutrition; E87.0 Hyperosmolality and hypernatremia; Z68.1 Body mass index [BMI] 19.9 or less, adult; I50.42 Chronic combined systolic (congestive) and diastolic (congestive) heart failure; D53.9 Nutritional anemia, unspecified; R41.3 Other amnesia; E83.41 Hypermagnesemia; D72.829 Elevated white blood cell count, unspecified; R74.01 Elevation of levels of liver transaminase levels; E03.9 Hypothyroidism, unspecified; I25.10 Atherosclerotic heart disease of native coronary artery without angina pectoris; E86.0 Dehydration; K44.9 Diaphragmatic hernia without obstruction or gangrene; K29.70 Gastritis, unspecified, without bleeding; E11.9 Type 2 diabetes mellitus without complications; E78.00 Pure hypercholesterolemia, unspecified; K59.00 Constipation, unspecified; K57.30 Diverticulosis of large intestine without perforation or abscess without bleeding; I11.0 Hypertensive heart disease with heart failure; Z20.822 Contact with and (suspected) exposure to COVID-19; Z95.1 Presence of aortocoronary bypass graft; Z95.810 Presence of automatic (implantable) cardiac defibrillator; Z82.49 Family history of ischemic heart disease and other diseases of the circulatory system; Z83.3 Family history of diabetes mellitus; I25.2 Old myocardial infarction; Z90.49 Acquired absence of other specified parts of digestive tract; W18.30XD Fall on same level, unspecified, subsequent encounter; S42.222D 2-part displaced fracture of surgical neck of left humerus, subsequent encounter for fracture with routine healing

== ENCOUNTER → 2020-03-11 | Outpatient (CLI) | payer MEDICARE | END | disposition home or self-care (01) | LOC: RAD 00:13 | PROVIDERS: ATTEND Orthopaedic Surgery | DX: S42.222D 2-part displaced fracture of surgical neck of left humerus, subsequent encounter for fracture with routine healing (principal); W19.XXXD Unspecified fall, subsequent encounter ==

== ENCOUNTER → 2020-04-14 | Outpatient (CLI) | payer MEDICARE | END | disposition home or self-care (01) | LOC: ORTHO 03:09 | PROVIDERS: ATTEND Orthopaedic Surgery | DX: S42.222D 2-part displaced fracture of surgical neck of left humerus, subsequent encounter for fracture with routine healing (principal); X58.XXXD Exposure to other specified factors, subsequent encounter ==

== ENCOUNTER → 2020-05-03 | Outpatient (CLI) | payer MEDICARE | END | disposition home or self-care (01) | LOC: ORTHO 00:23 | PROVIDERS: ATTEND Orthopaedic Surgery | DX: S42.222D 2-part displaced fracture of surgical neck of left humerus, subsequent encounter for fracture with routine healing (principal); X58.XXXD Exposure to other specified factors, subsequent encounter ==

== ENCOUNTER → 2020-05-31 | Outpatient (CLI) | payer MEDICARE | END | disposition home or self-care (01) | LOC: ORTHO 00:46 | PROVIDERS: ATTEND Orthopaedic Surgery | DX: S42.222D 2-part displaced fracture of surgical neck of left humerus, subsequent encounter for fracture with routine healing (principal); X58.XXXD Exposure to other specified factors, subsequent encounter ==